=== PATIENT | female | born 1975 | race Caucasian/White ===

== ENCOUNTER 2023-12-21 12:32 | Emergency (ER) | payer SELFPAY ==
--- NOTE | ~2023-12-21 | XR_ITS ---
EXAMINATION: 1. Left foot. 2. Left ankle. CLINICAL INFORMATION: Pain and injury. COMPARISON: None. TECHNIQUE: 1. Left foot. 3 views 2. Left ankle. 3 views FINDINGS: 1. Left foot. No fracture. No dislocation. Bone and joint are normal. Calcaneal spurs at the plantar surface and at the insertion of the Achilles tendon at the posterior calcaneus. 2. Left ankle. Soft tissue swelling of lateral malleolus. No acute osseous abnormality. No fracture or dislocation. Ankle mortise is congruent. XR/XR foot LT min 3V IMPRESSION: 1. Left foot. No acute abnormality. 2. Left ankle. Soft tissue swelling of lateral malleolus. No acute osseous abnormality. Electronically signed by: Jf Owusu MD 12/21/2023 03:28 PM EDT
--- NOTE | ~2023-12-21 | XR_ITS ---
EXAMINATION: 1. Left foot. 2. Left ankle. CLINICAL INFORMATION: Pain and injury. COMPARISON: None. TECHNIQUE: 1. Left foot. 3 views 2. Left ankle. 3 views FINDINGS: 1. Left foot. No fracture. No dislocation. Bone and joint are normal. Calcaneal spurs at the plantar surface and at the insertion of the Achilles tendon at the posterior calcaneus. 2. Left ankle. Soft tissue swelling of lateral malleolus. No acute osseous abnormality. No fracture or dislocation. Ankle mortise is congruent. XR/XR ankle LT min 3V IMPRESSION: 1. Left foot. No acute abnormality. 2. Left ankle. Soft tissue swelling of lateral malleolus. No acute osseous abnormality. Electronically signed by: Jf Owusu MD 12/21/2023 03:28 PM EDT
[2023-12-21 13:24] VITALS: BP 145/86; PULSE 97; RESP 20; TEMP 36.8; O2SAT 100; BMI 28.2
--- NOTE | 2023-12-21 13:24 | ED.GENADULT ---
HPI - General Adult General Chief complaint: Extremity Injury, Lower Stated complaint: l ankle inj Time Seen by Provider: 12/21/23 16:37 Source: patient Mode of arrival: ambulatory Limitations: no limitations History of Present Illness ED Provider: DENZEL SCHUSTER narrative: 48 yo female with no PMH here with c/o L ankle injury s/p tripping down the stairs pain on L foot and L ankle. Happened this AM. No head injury. No prox fibula ttp. She notes the small toe feels tingly. MD complaint: foot/ankle injury Onset (ago): day(s) (this AM) Location: left and lower extremity Radiation: non-radiation Severity: moderate Quality: aching Pain Consistency: constant Relieving factors: none Exacerbating factors: movement Associated symptoms: other (tingling L toe) Treatments prior to arrival: none Related Data Previous Rx's ?Medication ?Instructions ?Recorded cyclobenzaprine 10 mg tablet 10 mg PO TID PRN muscle spasm #14 12/21/23 tabs tramadol 50 mg tablet 50 mg PO Q8H PRN pain #14 tabs 12/21/23 Allergies Allergy/AdvReac Type Severity Reaction Status Date / Time No Known Allergies Allergy Verified 12/21/23 13:25 Review of Systems Review of Systems: Constitutional : No Fever, No Chills ENT/Mouth : No Ear Pain, No Hoarseness, No sore throat Eyes: No Eye Pain, No Swelling, No Redness, No Foreign Body Cardiovascular : No Chest Pain, No SOB Respiratory : No Cough, No Dyspnea Gastrointestinal : No Nausea, No Vomiting, No Diarrhea, No abdominal Pain Genitourinary : No Dysuria, No Hematuria Musculoskeletal : positive joint pain, No Myalgias, pos Joint Swelling Skin : No Skin lacerations, No rash Neuro : No Weakness, No Numbness, No Loss of Consciousness, No Dizziness, No Headache, pos tingling All other systems reviewed and are negative [facility] Past Medical History Attestation statement: The following information was validated with the patient. Source: old records reviewed Medical History No pertinent past medical history Social History Social History (Updated 12/21/23 @ 16:52 by Lynette Steel DO) Patient Tobacco Use Status: Tobacco use Unknown Physical Exam ED Vital Signs: Vital Signs - 24 hr 12/21/23 13:24 Temperature 98.3 F Pulse Rate 97 Respiratory Rate 20 Blood Pressure 145/86 H Pulse Oximetry 100 Oxygen Delivery Method Room Air BMI result Body Mass Index 28.2 Appearance: Alert. Oriented X3. No acute distress. Eyes: Pupils equal, round and reactive to light. ENT: Pharynx normal. Neck: Normal inspection. CVS: Pulses normal. Respiratory: No respiratory distress. Abdomen: atraumatic Skin: Skin warm and dry. Normal skin color. no abrasions or skin breaks on L foot/ankle Extremities: No lower extremity edema. L ankle very mild swelling to lateral malleolus, able to plantar flex, 2+ DP and PT pulse, normal babinski, can feel all toes but states L small toe feels less on exam. foot is warm to the touch. compartments are soft in the leg, denies prox fibula ttp. Neuro: Oriented X 3. No motor deficit. No sensory deficit. Course Course Course Narrative: RME performed by Verna Canseco PA-C. Patient is a 48 year old assigned female at presenting to the emergency department with left ankle and foot pain. Patient states that she injured her left ankle yesterday. Detailed physical exam and review of systems are deferred to the outreach clinician. Imaging ordered. Patient placed back in the waiting room pending room availability and results. Medical Decision Making Medical Decision Making MDM Narrative: 48 yo female who states she has no PMH here with c/o L foot and ankle pain after trip and fall today she has bounding pulses, she has warm foot, no prox fibula ttp, compartments are soft in the calf, lateral malleolus swelling is mild. She reports she is not sure if she inverted or everted the ankle she just heard a pop. Plantar flexion intact, all ttp along lateral malleolus and she reports tingling in L small toe. Could be related to swelling or compression at this time xrays ordered, air cast, crutches and return precautions. Differential Diagnosis Differential Diagnoses: The differential diagnosis associated with the presentation includes sprain, strain, fracture Independent Interpretation I performed an independent interpretation of an: Plain X-Ray (no fracture) Radiology Impression Discussion of test interpretation with radiology: I have reviewed the radiologist's reading. Prescription Management I considered prescription management with: Pain Medication and Other Discharge Plan Discharge Clinical Impression: Ankle sprain and strain Patient Disposition: Home, Self-Care Instructions: Ankle Sprain (ED) Additional Instructions: rest ice elevated use aircast for 7 days crutches for 5 days then apply weight to foot on day 6 follow up with your doctor if not better at day 5 if the tingling in small toe is not better with swelling please return at 24 hours XR/XR foot LT min 3V IMPRESSION: 1. Left foot. No acute abnormality. 2. Left ankle. Soft tissue swelling of lateral malleolus. No acute osseous abnormality. Prescriptions: New tramadol 50 mg tablet 50 mg PO Q8H PRN (Reason: pain) Qty: 14 0RF cyclobenzaprine 10 mg tablet 10 mg PO TID PRN (Reason: muscle spasm) Qty: 14 0RF Stand Alone Forms: Work/School Release Print Language: Bruneian
[2023-12-21 17:06] VITALS: BP 145/86; PULSE 97; RESP 20; TEMP 36.8; O2SAT 100
== END 2023-12-21 17:07 | disposition home or self-care (01) ==
PROVIDERS: Emergency Provider Emergency Medicine
DX: S93.402A Sprain of unspecified ligament of left ankle, initial encounter (principal); S96.912A Strain of unspecified muscle and tendon at ankle and foot level, left foot, initial encounter; W10.9XXA Fall (on) (from) unspecified stairs and steps, initial encounter; Y93.9 Activity, unspecified; Y92.89 Other specified places as the place of occurrence of the external cause; Y99.9 Unspecified external cause status; M79.672 Pain in left foot
CPT/HCPCS: 73610; 73630; 99282; 99283